=== PATIENT | male | born 1940 | race Caucasian/White ===

== ENCOUNTER 2018-04-16 17:40 | Observation (INO) | payer OTHER, SELFPAY ==
[2018-04-16] VITALS (8 sets, daily range): BP systolic 135–195; BP diastolic 88–114; PULSE 81–105; RESP 14–21; TEMP 36.8–36.9; O2SAT 95–98; BMI 29.7; BMI 29.2
[2018-04-16 17:56] LABS: Bedside Glucose 169 mg/dL (70-110)
[2018-04-16 18:51] LABS: Absolute Lymphocyte Count 1.21 X10^3/ul (0.83-4.51); Absolute Neutrophil Count 4.2 X10^3/uL (2.0-7.7); Basophil# 0.03 X10^3/uL; Basophil% 0.5 % (0-1); Eosinophil# 0.12 X10^3/uL; Eosinophils% 1.9 % (0-5); Hematocrit 39.8 % (40-54); Hemoglobin 12.5 g/dl (13.0-16.5); Lymphocyte # 1.21 X10^3/ul (4.0); Lymphocyte % 19.4 % (19-41); Mean Corp Hgb Conc 31.4 g/gl (32-36); Mean Corpuscular Volume 95.4 fL (80-94); Mean Platelet Vol. 9.7 fl (6.2-12.0); Monocyte# 0.68 X10^3/uL; Monocyte% 10.9 % (0-10); Neutrophil # 4.21 X10^3/uL (2.7-7.7); Neutrophil % 67.3 % (47-70); Platelet Count 277 K/mm3 (150-450); RBC Distribution Width CV 13.5 % (11.6-14.6); RBC Distribution Width SD 46.8 fl (35.1-43.9); Red Blood Count 4.17 M/mm3 (4.6-6.2); White Blood Count 6.3 K/mm3 (4.4-11.0)
[2018-04-16 18:54] LABS: POSITIVE COUNT NO; POSITIVE DIFFERENTIAL NO; POSITIVE MORPHOLOGY NO
[2018-04-16] MEDS: 0.9% Normal Saline 1,000 ML 150 ML IV (18:56)
[2018-04-16 19:26] LABS: Anion Gap 6 (5-15); BUN 18 mg/dL (7-18); BUN/Creat Ratio 15.5 RATIO (10-20); Calcium,Total 9.3 mg/dL (8.5-10.1); Chloride 102 mmol/L (98-107); Creatinine, Serum 1.16 mg/dL (0.70-1.30); EST Glomerular Filtration Rate 65 mL/min (>60); Est Glom Filt Rate - Afr Amer 78 mL/min (>60); Estimated Creatinine Clearance 52.48 ml/min; Glucose 177 mg/dL (74-106); Potassium 4.2 mmol/L (3.5-5.1); Sodium Level 139 mmol/L (136-145)
--- NOTE | 2018-04-16 20:09 | PCM.HP.STD ---
Problem List (1) Patent foramen ovale Status: Chronic (2) Paroxysmal atrial fibrillation Status: Chronic (3) Type 2 diabetes mellitus without complications Status: Chronic (4) History of CVA with residual deficit Status: Chronic History of Present Illness Date of Admission: 04/16/18 Chief Complaint: Double vision ?5 days. The patient is a 77 year old M with a significant history of patent foramen ovale, paroxysmal atrial fibrillation on Coumadin anticoagulation, type 2 diabetes, hyperlipidemia, hypertension, prior CVA with some residual left-sided weakness who presented with a 5 day history of persistent double vision. He denies any focal weakness, speech changes, numbness or tingling.. 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 (Chronic) Patent foramen ovale (Chronic) Nonsustained ventricular tachycardia (Chronic) Paroxysmal atrial fibrillation (Chronic) Type 2 diabetes mellitus without complications (Chronic) Hyperlipidemia (Chronic) Hypertension (Chronic) History of CVA with residual deficit (Chronic) Medical History: Medical History (Last Reviewed 10/20/17 @ 13:18 by Fabiola Murphy) Patent foramen ovale (Chronic) Q21.1 Nonsustained ventricular tachycardia (Chronic) I47.2 Paroxysmal atrial fibrillation (Chronic) I48.0 Type 2 diabetes mellitus without complications (Chronic) E11.9 Hyperlipidemia (Chronic) E78.5 Hypertension (Chronic) I10 History of CVA with residual deficit (Chronic) I69.30 Atherosclerosis of coronary artery of [place] heart without angina pectoris I25.10 Allergies No Known Allergies Allergy (Verified 10/20/17 13:18) Home Medications: Ambulatory Orders Medication Instructions Recorded Insulin Glargine,Hum.rec.anlog 12 unit SQ DAILY 01/22/16 [Lantus] Lisinopril [Zestril] 5 mg PO DAILY 01/22/16 Metoprolol Tartrate [Lopressor 50 mg PO BID 01/22/16 (Beta Federico)] Pioglitazone [Actos] 45 mg PO DAILY 01/22/16 Sitagliptin Phosphate [Januvia] 100 mg PO DAILY 01/22/16 Warfarin [Coumadin ([facility])] 5 mg PO DAILY 01/22/16 glipiZIDE [Glucotrol] 5 mg PO BID 01/22/16 Simvastatin 40 mg PO QHS 08/16/18 Warfarin [Coumadin ([facility])] 7.5 mg PO DAILY 04/16/18 Surgical History: Surgical History (Last Reviewed 10/20/17 @ 13:18 by Fabiola Murphy) History of left heart catheterization Onset Date: ~10/08/07 Z98.890 non obs CAD Surgical History: no surgical history Lives: Alone Smoking Status: Never smoker Tobacco Use: Non-smoker Alcohol: None, Rare - *Family History Maternal Family History: Family History (Last Reviewed 10/20/17 @ 13:18 by Fabiola Murphy) Father CAD (coronary artery disease) History Items: No pertinent history Paternal Family History: Family History (Last Reviewed 10/20/17 @ 13:18 by Fabiola Murphy) Father CAD (coronary artery disease) History Items: No pertinent history Review of Systems Constitutional: Denies: Chills, Fever, Weight Change HEENT: Denies: Head Aches, Sinus Congestion, Sinus Drainage Cardiovascular: Denies: Chest Pain, Palpitations Respiratory: Denies: Cough, Shortness of breath at rest, Sputum production Gastrointestinal: Denies: Abdominal Pain, Nausea, Vomiting Genitourinary: Denies: Dysuria Musculoskeletal: Denies: Joint Pain, Joint Tenderness Skin: Denies: Rash, Wounds Neurological: Denies: Numbness, Tingling, Focal weakness Psychiatric: Reports: Anxiety Hematologic/ Lymphatic: Reports: Adenopathy VTE Information - Inpt Only VTE Present on Admission: No VTE Mechan Device Prophylaxis: SCD's VTE Pharm Prophylaxis ordered?: No Reason prophylaxis not ordered:: Treatment Not Indicated - On Coumadin for A. fib. Patient took his Coumadin on the day of admission. - Physical Exam General: Alert, Oriented x3, Cooperative HEENT: Atraumatic, PERRLA, EOMI, Normocephalic Neck: Supple, No JVD, Negative Carotid Bruits Lungs: Clear to auscultation, Normal air movement Cardiovascular: Regular rate, No murmurs Abdomen: Bowel Sounds Present, Soft, Non Tender Extremities: No edema, Capillary Refill Less than 3 Seconds Skin: No rashes, No breakdown Musculoskeletal: No Tenderness to Palpation of Joints or Extremities Neurological: Motor Exam 5/5 strength throughout, - - A confrontation test unremarkable. With one eye closed the patient sees clearly. However with both eyes open the patient see objects doubled. No hyperreflexia looks. Negative pronator drift. No dysmetria. Vital Signs Temp Pulse Resp BP Pulse Ox 98.2 F 84 21 H 148/114 H 95 04/16/18 17:41 04/16/18 19:40 04/16/18 19:40 04/16/18 19:40 04/16/18 19:40 Oxygen Delivery Method Room Air Weight: 91.5 kg Body Mass Index (BMI) 29.7 Finger Stick Blood Glucose 169 Laboratory Tests Past 24 Hrs 04/16/18 04/16/18 18:30 18:30 WBC 6.3 RBC 4.17 L Hgb 12.5 L Hct 39.8 L MCV 95.4 H MCH 30.0 MCHC 31.4 L RDW 13.5 RDW Differential 46.8 H Plt Count 277 MPV 9.7 Immature Gran % (Auto) 0.000 Neut % (Auto) 67.3 Lymph % (Auto) 19.4 [place] % (Auto) 10.9 H Eos % (Auto) 1.9 Baso % (Auto) 0.5 Absolute Neuts (auto) 4.2 Absolute Lymphs (auto) 1.21 Total Counted Not Reportable Sodium 139 Potassium 4.2 Chloride 102 Carbon Dioxide 31.0 Anion Gap 6 BUN 18 Creatinine 1.16 Estim Creat Clear Calc 52.48 Est GFR (MDRD) Af Amer 78 Est GFR (MDRD) Non-Af 65 BUN/Creatinine Ratio 15.5 Glucose 177 H Calcium 9.3 Troponin I < 0.015 POC Glucose 04/16/18 17:48 POC Glucose 169 H Assessment/Plan The patient is a 77 year old M with a significant history of patent foramen ovale, paroxysmal atrial fibrillation on Coumadin anticoagulation, type 2 diabetes, hyperlipidemia, hypertension, prior CVA with some residual left-sided weakness presents with a double vision consistent with strokelike symptoms. Strokelike symptoms The patient has multiple risk factors for stroke:paroxysmal A. fib although on Coumadin; patent foramen ovale; diabetes; hypertension and hyperlipidemia. Brain CT showed no hemorrhage; it showed chronic involutional changes. MRI/MRA of brain and neck ordered per stroke protocol Echocardiogram ordered. Aspirin and Lipitor continued. Since his symptoms started 5 days ago there is no need for permissive hypertension at this time. Lisinopril and metoprolol continued PT/ST/OT to work with patient. Fasting lipids in a.m. Neurology consult. Diabetes Glucotrol, linagliptin, Actos and Lantus continued Accu-Chek q. before meals at bedtime Hypertension Lisinopril and metoprolol continued as above. Chronic A. fib PT/INR ordered. Will hold Coumadin at this time to prevent hemorrhagic conversion if indeed an MRI shows any stroke. DVT Prophylaxis SCD Patient reports taking Coumadin on day of admission. Code Visit OBSV E&M: 41922 Initial observation care L3
--- NOTE | 2018-04-16 20:10 | ED.VISSUMM ---
- ER Visit Summary Date of Service: 04/16/18 Chief Complaint: [Double vision] History of Present Illness: The patient is a 77 M [presents the emergency department with complaint of double vision that started 5 days ago. Patient states that when he looks with his right eye he only sees one object and when he lives with his left eye he only sees one object but when both eyes are open together he sees 2 objects side by side. Patient denies any headache. Patient denies any falls or head injuries. Patient denies any focal weakness otherwise. He denies any difficulty with speech. Patient does have history of prior stroke years ago without significant deficits left from that. Patient states that he had a heart rhythm and needed cardioversion at some point but he cannot remember the name of it. Patient is not anticoagulated.] Physical Examination: [HEENT-PERRLA, EOMI. Cranial nerves II through XII grossly intact. TMs clear. Mucous membranes moist. No adenopathy. Cardiovascular-regular rate and rhythm without murmur or ectopy Lungs-clear to auscultation, chest wall stable without crepitus or subcu emphysema Abdomen-normoactive bowel sounds, soft, nontender, no rebound or rigidity, no peritoneal signs. Neuro xdgg-clilks-qcbg and heel to olguin testing within normal limits, negative Romberg, negative pronator drift, fundi benign. Extremities-intact ?4, normal range of motion, normal pulses, atraumatic] Test Results: [CT scan of the brain showed chronic involutional changes. EKG obtained arrival shows atrial fibrillation with a ventricular response of 96 bpm. Troponin was less than 0.015. CBC with differential was normal. Chemistries unremarkable.] Emergency Department Course and Treatment: Patient case discussed with hospitalist will evaluate patient for admission] Treatment Plan: [Admit for further workup and evaluation of double vision as we need to rule out stroke as the etiology.] Disposition: [Admit] Impression: [Double vision-rule out stroke Atrial fibrillation] This note was generated with [employer] dictation software. It may contain incorrect words, spelling, and punctuation that were not noted in review of the chart prior to signing ED Disposition - Plan for ED Patient: Chief Complaint: Vision Prob Referrals: Mohit Palacio DO [Primary Care Provider] -
--- NOTE | 2018-04-16 20:24 | NURSING ---
Called serge in er at this time, pt ok for floor.
[2018-04-16] MEDS: Metoprolol Tartrate 50 MG Tablet PO (23:06)
[2018-04-17] VITALS (9 sets, daily range): BP systolic 137–155; BP diastolic 65–90; PULSE 79–99; RESP 14–16; TEMP 36.6–37.1; O2SAT 96–98
[2018-04-17 06:12] LABS: International Normalized Ratio 1.5
[2018-04-17 06:28] LABS: Anion Gap 5 (5-15); BUN 13 mg/dL (7-18); BUN/Creat Ratio 15.2 RATIO (10-20); Calcium,Total 8.8 mg/dL (8.5-10.1); Chloride 106 mmol/L (98-107); Cholesterol 111 mg/dL (200); Creatinine, Serum 0.86 mg/dL (0.70-1.30); EST Glomerular Filtration Rate 92 mL/min (>60); Est Glom Filt Rate - Afr Amer 111 mL/min (>60); Estimated Creatinine Clearance 70.79 ml/min; Glucose 144 mg/dL (74-106); High Density Lipoprotein 60 mg/dL; Sodium Level 140 mmol/L (136-145); Triglycerides 49 mg/dL; Very Low Density Lipoprotein 10 mg/dL (5-40)
[2018-04-17 07:16] LABS: Bedside Glucose 149 mg/dL (70-110)
[2018-04-17] MEDS: glipiZIDE 5 MG Tablet PO (09:05)
[2018-04-17] MEDS: Aspirin 81 MG TAB.CHEW PO (09:05)
[2018-04-17] MEDS: Pioglitazone Hydrochloride 45 MG Tablet PO (09:05)
[2018-04-17] MEDS: LINAGLIPTIN 5 MG TABLET PO (09:06)
[2018-04-17] MEDS: Metoprolol Tartrate 50 MG Tablet PO (09:06)
[2018-04-17] MEDS: Lisinopril 5 MG Tablet PO (09:06)
--- NOTE | 2018-04-17 11:22 | CON.PCM_ITS ---
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 Per patient this started about 5 days ago, has diplopia in both eyes, feels images are side to side. Denies any ALDRIDGE, vision loss, speech disturbances, focal motor weakness or sensory loss. Per patient he lives alone, does not use cane or walker to ambulate, denies any falls and does not drive. 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 INR on admission was 1.5 [] Past Medical History Past Medical History (Chronic Problems): Chronic Problems (Last Reviewed 10/20/17 @ 13:18 by Fabiola Murphy) [employer] (current) use of anticoagulants (Chronic) Patent foramen ovale (Chronic) Nonsustained ventricular tachycardia (Chronic) Paroxysmal atrial fibrillation (Chronic) Type 2 diabetes mellitus without complications (Chronic) Hyperlipidemia (Chronic) Hypertension (Chronic) History of CVA with residual deficit (Chronic) Medical History: Medical History (Last Reviewed 10/20/17 @ 13:18 by Fabiola Murphy) Patent foramen ovale (Chronic) Q21.1 Nonsustained ventricular tachycardia (Chronic) I47.2 Paroxysmal atrial fibrillation (Chronic) I48.0 Type 2 diabetes mellitus without complications (Chronic) E11.9 Hyperlipidemia (Chronic) E78.5 Hypertension (Chronic) I10 History of CVA with residual deficit (Chronic) I69.30 Atherosclerosis of coronary artery of [place] heart without angina pectoris I25.10 Allergies No Known Allergies Allergy (Verified 10/20/17 13:18) Home Medications: Ambulatory Orders Medication Instructions Recorded Insulin Glargine,Hum.rec.anlog 12 unit SQ DAILY 01/22/16 [Lantus] Lisinopril [Zestril] 5 mg PO DAILY 01/22/16 Metoprolol Tartrate [Lopressor 50 mg PO BID 01/22/16 (Beta Federico)] Pioglitazone [Actos] 45 mg PO DAILY 01/22/16 Sitagliptin Phosphate [Januvia] 100 mg PO DAILY 01/22/16 Warfarin [Coumadin ([facility])] 5 mg PO DAILY 01/22/16 glipiZIDE [Glucotrol] 5 mg PO BID 01/22/16 Simvastatin 40 mg PO QHS 04/16/18 Warfarin [Coumadin ([facility])] 7.5 mg PO DAILY 04/16/18 Surgical History: Surgical History (Last Reviewed 10/20/17 @ 13:18 by Fabiola Murphy) History of left heart catheterization Onset Date: ~10/08/07 Z98.890 non obs CAD Surgical History: no surgical history Lives: Alone Smoking Status: Never smoker Tobacco Use: Non-smoker Alcohol: None, Rare - *Family History Maternal Family History: Family History (Last Reviewed 10/20/17 @ 13:18 by Fabiola Murphy) Father CAD (coronary artery disease) History Items: No pertinent history Paternal Family History: Family History (Last Reviewed 10/20/17 @ 13:18 by Fabiola Murphy) Father CAD (coronary artery disease) History Items: No pertinent history Review of Systems Constitutional: Reports: - - complete ROS negative except as documented in HPI Patient Problems: Active and Suspected Problems (Last Reviewed 10/20/17 @ 13:18 by Fabiola Murphy) Diplopia (Acute) - Physical Exam General: Alert HEENT: Normocephalic Neck: Supple Lungs: Normal air movement Cardiovascular: Normal S1, Normal S2 Abdomen: Bowel Sounds Present Extremities: No cyanosis Skin: No rashes Musculoskeletal: No Tenderness to Palpation of Joints or Extremities Neurological: - - consious, alert, AoAx3, CN 2-12 grossly intact, except for diplopia, old residual left facial droop, power 5/5 right UE/LE, -5/5 left UE/LE , no sensory loss, no cerebellar signs, Reflexes + B/L B/S/T/K/A, gait deferred. Psych/Mental Status: Normal Affect Vital Signs Temp Pulse Resp BP Pulse Ox 97.8 F 79 16 155/90 H 96 04/17/18 09:04 04/17/18 10:59 04/17/18 09:04 04/17/18 09:04 04/17/18 09:04 Oxygen Delivery Method Room Air Weight: 89.8 kg Body Mass Index (BMI) 29.2 Intake and Output for Last 24 Hours 04/15/18 04/16/18 04/17/18 23:59 23:59 23:59 Intake Total 240 / 240 Output Total 950 / 950 Balance -710 / -710 Laboratory Tests Past 24 Hrs 04/16/18 04/17/18 04/17/18 21:36 05:45 05:45 PT 18.0 H INR 1.5 Sodium 140 Potassium 4.0 Chloride 106 Carbon Dioxide 29.0 Anion Gap 5 BUN 13 Creatinine 0.86 Estim Creat Clear Calc 70.79 Est GFR (MDRD) Af Amer 111 Est GFR (MDRD) Non-Af 92 BUN/Creatinine Ratio 15.2 Glucose 144 H Calcium 8.8 Troponin I < 0.015 Triglycerides 49 Cholesterol 111 LDL Cholesterol 41 VLDL Cholesterol 10 HDL Cholesterol 60 POC Glucose 04/17/18 07:08 POC Glucose 149 H Assessment/Plan All Active Problems (Last Reviewed 10/20/17 @ 13:18 by Faboila Murphy) Diplopia (Acute) The patient is a 77 year old CM with PMH HTN, HLD, DM, 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 Per patient this started about 5 days ago, has diplopia in both eyes, feels images are side to side. Denies any fatigue, ptosis, ALDRIDGE, vision loss, speech disturbances, focal motor weakness or sensory loss. Per patient he lives alone, does not use cane or walker to ambulate, denies any falls and does not drive. 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 INR on admission was 1.5 Impression Diplopia-? due to diabetes. Plan -MRI brain and CTA head/neck reviewed- no new stroke, old changes -On Coumadin, keep INR 2-3 -On Lipitor, decrease to 40 mg PO q hs -Check ACH binding/blocking/modulating Ab and anti-MUSK ab. Check Hba1c. -Recommend ophthalmology consult as outpatient. -Fall precautions -Further medical management per primary team. -GI/DVT prophylaxis -Please call with questions if any -Thank you for allowing us to participate in patient's care and management I spent 60 minutes taking history, doing physical examination, reviewing medical records,coordinating care and counseling the patient. Code Visit Inpatient E&M: 48120 Init Hosp L3
[2018-04-17 11:41] LABS: Bedside Glucose 308 mg/dL (70-110)
--- NOTE | 2018-04-17 11:58 | PCM.DC ---
- Discharge Diagnoses Current Active Problems: Current Active and Chronic Problems (Last Reviewed 10/20/17 @ 13:18 by Fabiola Murphy) Diplopia (Acute) You will use the following diet at home:: Calorie/Carbohydrate Controlled (specify 1200, 1400, etc), Cardiac Discharge Activity: May Not Drive - Until approved by ophthalmology. Call your doctor if you observe: Numbness or Tingling, Shortness of breath, Dizziness, Fainting spells, Chest pain Additional Instructions: You will take coumadin 7.5 mg daily until further notified to resume previous regimen. Repeat INR on friday which will be followed with by Dr. Smith. Allergies/Adverse Reactions: Allergies No Known Allergies Allergy (Verified 10/20/17 13:18) Medications to take at Discharge Insulin Glargine,Hum.rec.anlog [Lantus] 12 unit SQ DAILY 01/22/16 Lisinopril [Zestril] 5 mg PO DAILY 01/22/16 Metoprolol Tartrate [Lopressor (beta anand)] 50 mg PO BID 01/22/16 Pioglitazone [Actos] 45 mg PO DAILY 01/22/16 Sitagliptin Phosphate [Januvia] 100 mg PO DAILY 01/22/16 Warfarin [Coumadin] 5 mg PO DAILY 01/22/16 glipiZIDE [Glucotrol] 5 mg PO BID 01/22/16 Simvastatin 40 mg PO QHS 04/16/18 Warfarin [Coumadin] 7.5 mg PO DAILY 04/16/18 Orders to be completed after discharge: Prothrombin Time w/INR Time Frame: 3 Days, Location: Laboratory Primary Care Physician: Mohit Palacio DO [Primary Care Provider] - Please follow up with your Primary Care Physician in: 3-5 Days Test Results: Test results from this visit will be discussed in further detail at your follow-up appointment, if applicable. Please Follow Up With: Quinton Smith MD When: 1 Week Please Follow Up With: [facility] When: Call for an appointment next week Proposed Discharge Date: 04/17/18
--- NOTE | 2018-04-17 12:09 | PCM.DC.SUM ---
<Tala Lomeli - Last Filed: 04/17/18 13:58> Discharge Date and Diagnosis - Problem List Patient Problems: Active and Suspected Problems (Last Reviewed 10/20/17 @ 13:18 by Fabiola Murphy) Diplopia (Acute) Date of Admission: 04/16/18 Date of Discharge: 04/17/18 - Primary Discharge Diagnosis Active and Suspected Problems (Last Reviewed 10/20/17 @ 13:18 by Fabiola Murphy) 1. Diplopia-suspected secondary to diabetes. Acute CVA ruled out. - Secondary Discharge Diagnosis Chronic Problems (Last Reviewed 10/20/17 @ 13:18 by Fabiola Murphy) [facility] (current) use of anticoagulants (Chronic) Patent foramen ovale (Chronic) Nonsustained ventricular tachycardia (Chronic) Paroxysmal atrial fibrillation (Chronic) Type 2 diabetes mellitus without complications (Chronic) Hyperlipidemia (Chronic) Hypertension (Chronic) History of CVA with residual deficit (Chronic) Hospital Course and Treatment Imaging Results: Diagnostic Data Brain CT 04/16/18 18:05 IMPRESSION: Chronic involutional changes of the brain. Electronically Signed: Diaz Sadler DO at 19:30 EDT Tel , Service support , Brain MRI 04/16/18 21:10 IMPRESSION: 1. Involutional changes of the brain, as described above. 2. No MR evidence for acute infarct. Electronically Signed: Gayathri Betts MD at 8:58 EDT , Service support , Head MRA 04/16/18 21:10 IMPRESSION: Apparent hemodynamically significant stenosis of the distal right M1 segment with apparent decreased perfusion of the right M2 segments. Electronically Signed: Gayathri Betts MD at 9:15 EDT , Service support , Neck MRA 04/16/18 21:10 IMPRESSION: Technically limited MRA due to patient motion without definite evidence for hemodynamically significant stenosis or thrombosis. Electronically Signed: Gayathri Betts MD at 9:04 EDT , Service support , Dr. Maldonado- Neurology Operations: None Procedures: 2-D Echocardiogram Summary of Care Provided: The patient is a 77 year old M admitted 04/16/2018 due to double vision for 5 days. He has a past medical history of paroxysmal atrial fibrillation on Coumadin, type 2 diabetes mellitus, hypertension, hyperlipidemia, history of CVA with residual left-sided weakness, patent foramen ovale. Neurology consulted. Acute CVA ruled out. MRI of brain showed no acute infarct. 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 INR subtherapeutic at 1.5. Patient follows with Dr. Smith for paroxysmal atrial fibrillation. He will take increased dose of Coumadin 7.5 mg daily until further advised to resume previous regimen. Repeat INR in 3 days. Recommend follow-up with primary care physician in 3-5 days, ophthalmology as soon as possible, and Dr. Smith in 1 week. INR to be managed by cardiology. Patient was instructed not to drive until further approved by ophthalmology. Echocardiogram pending and will reviewed prior to discharge. Hemoglobin A1c 9.3%. Recommend further medication adjustments and monitoring per primary care physician with goal of less than 7%. General: Alert, Oriented x3, Cooperative HEENT: Atraumatic, PERRLA, EOMI, Normocephalic Neck: Supple, No JVD, Negative Carotid Bruits Lungs: Clear to auscultation, Normal air movement Cardiovascular: Regular rate, No murmurs Abdomen: Bowel Sounds Present, Soft, Non Tender Extremities: No edema, Capillary Refill Less than 3 Seconds Skin: No rashes, No breakdown Musculoskeletal: No Tenderness to Palpation of Joints or Extremities Neurological: Motor Exam 5/5 strength throughout, neuro grossly intact, continues to complain of diplopia. Patient seen exam prior to discharge. Physical assessment as noted above. Patient stable for discharge home with the follow-up her conditions as noted above. This patient was seen by ALFREDA Sagastume under the supervision of Dr. Garces. Discharge Diet: Low fat/ Low Cholesterol, Carb Control Diet Discharge Activity: May Not Drive - Until approved by ophthalmology. Call your doctor if you observe: Numbness or Tingling, Shortness of breath, Dizziness, Fainting spells, Chest pain Home Medications: Medications to take at Discharge Insulin Glargine,Hum.rec.anlog [Lantus] 12 unit SQ DAILY 01/22/16 Lisinopril [Zestril] 5 mg PO DAILY 01/22/16 Metoprolol Tartrate [Lopressor (beta anand)] 50 mg PO BID 01/22/16 Pioglitazone [Actos] 45 mg PO DAILY 01/22/16 Sitagliptin Phosphate [Januvia] 100 mg PO DAILY 01/22/16 Warfarin [Coumadin] 5 mg PO DAILY 01/22/16 glipiZIDE [Glucotrol] 5 mg PO BID 01/22/16 Simvastatin 40 mg PO QHS 04/16/18 Warfarin [Coumadin] 7.5 mg PO DAILY 04/16/18 Primary Care Physician: Mohit Palacio DO [Primary Care Provider] - Please follow up with your Primary Care Physician in: 3-5 Days Please Follow Up With: Quinton Smith MD When: 1 Week Please Follow Up With: [facility] When: Call for an appointment next week Disposition: Home Minutes spent on discharge:: 35 Patient Condition:: Stable Medical Necessity - Tobacco Use Smoking Status: Never smoker Tobacco Use: Non-smoker Meaningful Use Info Meaningful Use Diagnoses (Choose all that apply): None applicable <Leo Garces - Last Filed: 04/17/18 15:20> Discharge Date and Diagnosis - Primary Discharge Diagnosis Active and Suspected Problems (Last Reviewed 10/20/17 @ 13:18 by Fabiola Murphy) Diplopia (Acute) - Secondary Discharge Diagnosis Chronic Problems (Last Reviewed 10/20/17 @ 13:18 by Fabiola Murphy) 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 Patient was placed on the monitored bed there was an initial suspicion of acute CVA however MRI obtained came back negative. Patient was therefore discharged home to follow-up with his primary care physician as well as to follow-up with ophthalmology. Patient INR was subtherapeutic on admission his Coumadin dose was adjusted prior to discharge Hospital course as elicited abide by discomfort including next Total time spent on discharge process 35 minutes Code Visit OBSV E&M: 81259 Observation care discharge
[2018-04-17 12:39] LABS: Hemoglobin A1c 9.3 % (4.2-6.3)
[2018-04-29 08:22] LABS: ACHR AB Modulating <12 % (0-20); ACHR Recep AB, Blocking 22 % (0-25)
== END 2018-04-17 15:45 | disposition home or self-care (01) ==
LOC: ED 18:28 → PCU 20:37
PROVIDERS: Psychiatry & Neurology Neurology; Admitting Provider Hospitalist; Emergency Provider Emergency Medicine; Family Provider Family Medicine; PCP Family Medicine; Visit Provider Internal Medicine
DX: H53.2 Diplopia (principal); Q21.1 Atrial septal defect; I48.0 Paroxysmal atrial fibrillation; E11.9 Type 2 diabetes mellitus without complications; E78.5 Hyperlipidemia, unspecified; I10 Essential (primary) hypertension; I69.354 Hemiplegia and hemiparesis following cerebral infarction affecting left non-dominant side; I47.2 Ventricular tachycardia; Z79.01 Long term (current) use of anticoagulants; Z79.4 Long term (current) use of insulin; Z79.899 Other long term (current) drug therapy; R94.31 Abnormal electrocardiogram [ECG] [EKG]
CPT/HCPCS: 36415; 70450; 70544; 70547; 70551; 80048; 80061; 82962; 83036; 83519; 84484; 85025; 85610; 93005; 93306; 96360; 96361; 97161; 97165; 97802; 99218; 99285; J7030; A4216; G0378

== ENCOUNTER → 2018-12-11 09:41 | Outpatient (CLI) | payer SELFPAY ==
[2018-11-09 10:20] VITALS: BMI 26.9
== END ==
PROVIDERS: Family Provider Family Medicine; PCP Family Medicine; Referring Provider Internal Medicine Cardiovascular Disease; Visit Provider Internal Medicine Cardiovascular Disease
DX: I47.2 Ventricular tachycardia (principal); I48.0 Paroxysmal atrial fibrillation; I10 Essential (primary) hypertension; E78.5 Hyperlipidemia, unspecified
CPT/HCPCS: 93017; 93350

== ENCOUNTER → 2018-12-29 11:00 | Outpatient (CLI) | payer SELFPAY ==
[2018-11-09 10:20] VITALS: BMI 26.9
--- NOTE | 2018-12-29 11:00 | RAD_ITS ---
STUDY: X-RAY CHEST REASON FOR EXAM: Male, 78 years old. 3 week history of shortness of breath. TECHNIQUE: PA and lateral views of the chest. COMPARISON: None. FINDINGS: Moderate size right pleural effusion with underlying infiltration and/or atelectasis. Small left pleural effusion with left basilar atelectasis. Normal size heart. Normal mediastinum and javier. Normal visualized pulmonary arteries. There is atherosclerotic calcification of the aortic arch with tortuosity. There are diffuse degenerative changes of the visualized thoracic spine. There is degenerative osteoarthritis of the bilateral shoulders. There is no demonstrated abnormality of the visualized soft tissue structures of the upper abdomen. RAD/Chest PA and Lateral IMPRESSION: Bilateral pleural effusions with underlying infiltration and/or atelectasis worse on the right side. Electronically Signed: Garcia Joy, at 11:30 EDT , Service support ,
--- NOTE | 2018-12-30 08:02 | HP_ITS ---
HPI HPI Surgical H&P: Yes Details: This is a 78-year-old male who presents today to the office for a cardiovascular outpatient follow-up. He is a diabetic, with no significant coronary disease by catheterization in October 2007, who is returning for followup of his history of atrial fibrillation and cerebrovascular accident approximately in 2002. Patient reports that he has slight left facial droop, slight weakness in his left upper extremity, and is unable to voluntarily close his left eye, but other than that has fully recovered. He reports that he has increased his walking, and is doing fairly well since his last visit. On 04/17/18 he had some diplopia thought maybe he had another stroke. He reported to [facility] ER where was found that he had low blood sugar and his Actos was adjusted. MRI apparently was negative for acute CVA. At that time, his Coumadin was held but then restarted. He is now here in follow-up. He is unaware of when he is in and out of atrial fibrillation. He was recently started on amiodarone therapy after his stress echocardiogram on 12/11/2018. His stress echocardiogram was negative for ischemia. He will undergo a cardioversion. He states ongoing SOB for three weeks. This is not worsening. It is most noted during activity. This improves with rest. He denies orthopnea or PND. He denies chest, arm, jaw, or neck pain. He denies palpitations, pre-syncope, or syncope. He states lightheadedness and dizziness with quick position changes such as bending forward and returning to upright position. Intake Vital Signs 12/29/18 Weight: 184 lb 12/29/18 Blood Pressure 118/68 12/29/18 Blood Pressure Location Lt brachial 12/29/18 Blood Pressure Position Sitting 12/29/18 Respiratory Rate 16 12/29/18 Pulse Rate 62 12/29/18 Pulse Source Palpation Intake Visit Reasons: PER DENIS Accompanied by: Son Is patient in pain?: No Allergies No Known Allergies Allergy (Verified 12/29/18 09:57) Medications Lisinopril [Zestril] 5 mg PO DAILY 01/22/16 [History Confirmed 12/29/18] Metoprolol Tartrate [Lopressor (beta anand)] 50 mg PO BID 01/22/16 [History Confirmed 12/29/18] Sitagliptin Phosphate [Januvia] 100 mg PO DAILY 01/22/16 [History Confirmed 12/29/18] glipiZIDE [Glucotrol] 5 mg PO BID 01/22/16 [History Confirmed 12/29/18] warfarin 5 mg tablet 5 mg PO .COMPLEX 04/28/18 [History Confirmed 12/29/18] pioglitazone 45 mg tablet 45 mg PO .COMPLEX 05/11/18 [History Confirmed 12/29/18] simvastatin 40 mg tablet 40 mg PO QHS #90 tab 10/26/18 [Rx Confirmed 12/29/18] insulin glargine (U- 100) 100 unit/mL subcutaneous solution 12 unit SC DAILY PRN 11/09/18 [History Confirmed 12/29/18] amiodarone 200 mg tablet 200 mg PO DAILY #30 tab 12/11/18 [Rx Confirmed 12/29/18] hydrochlorothiazide 12.5 mg tablet 12.5 mg PO DAILY 12/29/18 [History Confirmed 12/29/18] Ejection fraction %: 55 to 59 PFSH Medical History Persistent atrial fibrillation (Chronic) Patent foramen ovale (Chronic) Nonsustained ventricular tachycardia (Chronic) Type 2 diabetes mellitus without complications (Chronic) Hyperlipidemia (Chronic) Hypertension (Chronic) History of CVA with residual deficit (Chronic) Atherosclerosis of coronary artery of augustine heart without angina pectoris (Acute) Surgical History History of left heart catheterization (Chronic 10/08/07) History of removal of cyst (Chronic) Family History Father , Age 66 CAD (coronary artery disease) Myocardial infarction Sudden cardiac Mother , Age 83, CHF Congestive heart failure Social History Smoking Status: Never smoker ROS Const Const: Negative for fatigue, weakness, body ache, fever(s) or chills ENT ENT: Negative for dizziness Cardio Chest Pain: No Palpitations: No Edema: None Muscle aches with walking: None Resp Respiratory: Positive for SOB with activity; negative for SOB at rest, SOB orthopnea\SOB lying down or paroxysmal nocturnal dyspnea GI GI: Negative nausea, vomiting blood/hematemesis, bright, red blood in stools or black,tarry stools : Negative for hematuria or frequent nighttime urination/ nocturia Musc Musc: Negative for muscle aches/ myalgia Skin Skin: Negative non-healing lesions or rash Neuro Neuro: Negative for dizziness, lightheadedness, near syncope, syncope, orthostatic symptoms or weakness Endo Endo: Negative for fatigue Allergy Allergy/Immunology: Negative for rash Cardiology Exam Const Appearance: cooperative, healthy appearing, comfortable and no acute distress Nutritional Appearance: well nourished and overweight Orientation: alert, awake and oriented x3 Head Head: normal to inspection Ears: hearing grossly normal bilaterally Nose: external nose normal Face and Sinus: face symmetric Mouth: oral mucosae normal Eyes General: appearance normal, both eyes and all related structures Eyelids: eyelids normal EOM: EOM intact bilaterally Neck Neck: normal visual inspection and no JVD Carotids: normal carotid upstroke Chest Chest inspection: normal inspection of the chest, symmetric chest movement and normal respiratory effort; negative cough Auscultation: Bilateral: Clear to Auscultation Cardio Rate: regular rate Rhythm: irregularly irregular Heart sounds: S1 normal and S2 normal; negative rub, gallop or murmur GI GI: normal to inspection Neuro General: alert, awake, oriented x3 and CN's II-XI intact bilaterally Skin Skin: no rashes or lesions noted Extremities Pulses: Normal: Right Posterior Tibial Pulse, Left Posterior Tibial Pulse, Right Radial Pulse, Left Radial Pulse Lower Extremity Edema: None: Bilateral Psych Psychological: normal affect Assessment & Plan 1. Persistent atrial fibrillation I48.1 Paty - ALFREDA Ellis His EKG in office continues to showed atrial fibrillation. His rate is well controlled. He will continue with beta-anand and Coumadin therapy. His INR has been monitored by primary care physician and has been consistently greater than 2. He will continue to have his INR checked on a weekly basis prior to cardioversion. He will also undergo a thyroid evaluation to ensure stability. His most recent echocardiogram in April 2018 showed a preserved ejection fraction of 55% and mildly enlarged left atrium. His most recent stress echocardiogram from November 2018 was negative for ischemia and showed a preserved ejection fraction of 65%. He will proceed with cardioversion. Based on results further recommendation will be made. Orders Orders: 12 Lead EKG performed by [facility] 12/29/18 T4 Free Direct 12/29/18 Thyroid Stim Hormone (TSH) 12/29/18 2. Dyspnea on exertion R06.09 Plan ALFREDA Godwin Patient continues to have shortness of breath on exertion. It is unclear if this is related to his underlying atrial fibrillation or possibly related to his stage III diastolic dysfunction. Depending on results on his cardioversion, perhaps adjusting diuretic will be beneficial. This will be reassessed over time based on symptoms and rhythm. 3. Hyperlipidemia, unspecified hyperlipidemia type E78.5 Plan - ALFREDA Ellis This is being monitored by primary care physician. His last lipid panel in April 2018 showed cholesterol: 111, HDL: 60, LDL: 41, and triglycerides: 49. He will continue with current statin medication. 4. Essential hypertension I10 Plan - ALFREDA Ellis Patient's blood pressure is well-controlled. We will continue to monitor. We will not make any medication regimen changes. Plan Detail Other Medications New: hydrochlorothiazide 12.5 mg PO DAILY Additional Comments - ALFREDA Ellis Discussed the above patient with Dr. Smith, he agrees with the plan of care. Thank you for allowing us to participate in the patients plan of care, if you have any questions please do not hesitate to call. This note was generated using a voice recognition system and there may be incorrect words, spelling or punctuation that were not noted when reviewing the office note prior to saving. Coding Level of Care Code Off vis,est,level 3 Diagnoses Persistent atrial fibrillation I48.1 Dyspnea on exertion R06.09 Hyperlipidemia, unspecified hyperlipidemia type E78.5 ??Hyperlipidemia type: unspecified Essential hypertension I10 ??Hypertension type: essential hypertension Coding Level of Care Code Off vis,est,level 3 Diagnoses Persistent atrial fibrillation I48.1 Dyspnea on exertion R06.09 Hyperlipidemia, unspecified hyperlipidemia type E78.5 ??Hyperlipidemia type: unspecified Essential hypertension I10 ??Hypertension type: essential hypertension Supplemental Info Supplemental Information Stress echocardiogram from 12/11/2018: Interpretation summary Estimate ejection fraction is 65%. Normal, adequate, modified Tyler treadmill echocardiogram. Negative for ischemia by EKG and echocardiographic criteria. No angina symptoms noted. Patient had a baseline atrial fibrillation which continued throughout test. Rare PVCs and ventricular couplets during testing. Hypertensive blood pressure response appropriate blood pressure response to exercise. Below average exercise capacity for age. Test terminated due to attainment of target heart rate, dyspnea and fatigue. Final LVEF is 75%. No complications. Echocardiogram from 04/17/2018: Interpretation Summary Normal LV size. Moderate concentric left ventricular hypertrophy. Left ventricular systolic function is normal. The estimated ejection fraction is 55 %. Transmitral diastolic flow velocities suggest severe (stage 3) diastolic dysfunction Bubble contrast study negative for right to left interatrial shunt. Labs LDL Cholesterol 41 mg/dL (0-130) 04/17/18 HDL Cholesterol 60 mg/dL (40-) 04/17/18 Triglycerides 49 mg/dL (-199) 04/17/18 VLDL Cholesterol 10 mg/dL (5-40) 04/17/18 Diagnostics Electrocardiogram 12/29/18 Echocardiogram 04/16/18 Chest X-Ray 12/29/18 12/30/18 0802 <Electronically signed by Umer GANT> Date Umer LEMONC
--- NOTE | 2019-01-07 08:30 | RAD_ITS ---
STUDY: X-RAY CHEST REASON FOR EXAM: Male, 78 years old. Worsening shortness of breath TECHNIQUE: PA and lateral views of the chest. COMPARISON: 12/29/2018 FINDINGS: Moderate size right pleural effusion with underlying infiltration and/or atelectasis. Small left pleural effusion with left basilar atelectasis. Normal size heart. Normal mediastinum and javier. Normal visualized pulmonary arteries. There is atherosclerotic calcification of the aortic arch with tortuosity. There are diffuse degenerative changes of the visualized thoracic spine. There is degenerative osteoarthritis of the bilateral shoulders. There is no demonstrated abnormality of the visualized soft tissue structures of the upper abdomen. RAD/Chest PA and Lateral IMPRESSION: Bilateral pleural effusions with underlying infiltration and/or atelectasis worse on the right side. No interval change Electronically Signed: Rubin Rodriguez MD at 17:55 EDT , Service support ,
== END ==
PROVIDERS: Family Provider Family Medicine; PCP Family Medicine; Referring Provider Internal Medicine Cardiovascular Disease; Visit Provider Internal Medicine Cardiovascular Disease
DX: Z01.818 Encounter for other preprocedural examination (principal); R06.02 Shortness of breath
CPT/HCPCS: 71046

== ENCOUNTER → 2019-01-18 08:32 | Outpatient (CLI) | payer SELFPAY ==
[2018-11-09 10:20] VITALS: BMI 26.9
--- NOTE | 2019-01-18 08:38 | RAD_ITS ---
STUDY: X-RAY CHEST REASON FOR EXAM: Male, 78 years old. Pleural effusion TECHNIQUE: PA and lateral views of the chest. COMPARISON: Previous study of January 07, 2019 FINDINGS: A moderate-sized right-sided pleural effusion is again noted. This effusion may be at least partially loculated. There appears to be underlying atelectasis or infiltrate. A small left-sided effusion is also noted. There are fibrotic changes of the left lung base. Normal size heart. Normal mediastinum and javier. Normal visualized pulmonary arteries. There are calcified plaques of the aortic arch. There are diffuse degenerative changes of the visualized thoracic spine. Normal visualized ribs, clavicles, and shoulders. There is no demonstrated abnormality of the visualized soft tissue structures of the upper abdomen. RAD/Chest PA and Lateral IMPRESSION: Moderate sized right-sided pleural effusion is again noted which may be at least partially loculated. There again appears to be minimal underlying atelectasis or infiltrate. A small left-sided effusion is also noted. There is left basilar fibrosis. Calcified plaques of the aortic arch. Degenerative changes of the thoracic spine. Findings are similar to the previous study. Electronically Signed: Colt Day MD at 19:34 EDT , Service support ,
[2019-01-18 10:35] LABS: Anion Gap 11 (5-15); BUN 66 mg/dL (7-18); BUN/Creat Ratio 31.9 RATIO (10-20); Chloride 92 mmol/L (98-107); Creatinine, Serum 2.07 mg/dL (0.70-1.30); EST Glomerular Filtration Rate 33 mL/min (>60); Est Glom Filt Rate - Afr Amer 40 mL/min (>60); Glucose 251 mg/dL (74-106); Potassium 3.8 mmol/L (3.5-5.1); Sodium Level 135 mmol/L (136-145)
[2019-01-18 10:57] LABS: Prothrombin Time (Protime)PT. 39.5 SECONDS (11.7-14.9)
== END ==
PROVIDERS: Internal Medicine Cardiovascular Disease; Family Provider Family Medicine; PCP Family Medicine; Referring Provider Nurse Practitioner Family; Visit Provider Nurse Practitioner Family
DX: J90 Pleural effusion, not elsewhere classified (principal); E11.9 Type 2 diabetes mellitus without complications; I10 Essential (primary) hypertension; I48.1 Persistent atrial fibrillation; Z79.01 Long term (current) use of anticoagulants
CPT/HCPCS: 36415; 71046; 80048; 85610

== ENCOUNTER 2019-01-27 13:33 | Outpatient (RCR) | payer SELFPAY ==
[2018-11-09 10:20] VITALS: BMI 26.9
[2019-01-27 14:08] LABS: Prothrombin Time (Protime)PT. 37.5 SECONDS (11.7-14.9)
[2019-01-27 14:11] LABS: International Normalized Ratio 3.8
--- NOTE | 2019-02-03 09:16 | RAD_ITS ---
STUDY: X-RAY CHEST REASON FOR EXAM: Male, 78 years old. Shortness of breath TECHNIQUE: PA and lateral views of the chest. COMPARISON: Prior study of 01/18/2019 FINDINGS: A moderate right-sided pleural effusion which may be loculated is again noted. There appears to be underlying right lower lung field infiltrate and/or atelectasis. There is a calcified granuloma the left midlung field. A small left-sided effusion is also noted. Left basilar fibrotic changes are seen. Normal size heart. Normal mediastinum and javier. Normal visualized pulmonary arteries. There are calcified plaques of the aortic arch. There are mild diffuse degenerative changes of the thoracic spine. Normal visualized ribs, clavicles, and shoulders. There is no demonstrated abnormality of the visualized soft tissue structures of the upper abdomen. RAD/Chest PA and Lateral IMPRESSION: Bilateral effusions. There again appears to be an underlying right lower lung field infiltrate and/or atelectasis. Left basilar fibrotic changes are seen. Calcified plaques of the aortic arch. Findings are similar to the previous study. Electronically Signed: Colt Day MD at 22:09 EDT , Service support ,
[2019-02-03 09:31] LABS: Prothrombin Time (Protime)PT. 68.8 SECONDS (11.7-14.9)
== END 2019-01-27 15:00 | disposition home or self-care (01) ==
LOC: LAB 13:33
PROVIDERS: Family Provider Family Medicine; PCP Family Medicine; Referring Provider Internal Medicine Cardiovascular Disease; Visit Provider Internal Medicine Cardiovascular Disease
DX: I48.1 Persistent atrial fibrillation (principal); Z79.01 Long term (current) use of anticoagulants
CPT/HCPCS: 36415; 71046; 85610

== ENCOUNTER 2019-02-26 08:19 | Outpatient (RCR) | payer OTHER, SELFPAY ==
[2019-01-27 15:58] VITALS: BMI 26.9
[2019-02-05 08:43] LABS: Absolute Neutrophil Count 6.1 X10^3/uL (2.0-7.7); Basophil# 0.01 X10^3/uL; Basophil% 0.1 % (0-1); Differential Indicated SCAN CRITERIA MET; Eosinophil# 0.06 X10^3/uL; Eosinophils% 0.8 % (0-5); Hematocrit 34.3 % (40-54); Hemoglobin 10.9 g/dl (13.0-16.5); Lymphocyte % 8.2 % (19-41); Mean Corp Hgb Conc 31.8 g/gl (32-36); Mean Corpuscular Hgb 28.8 pg (27.0-32.0); Mean Corpuscular Volume 90.7 fL (80-94); Monocyte# 0.56 X10^3/uL; Monocyte% 7.7 % (0-10); Neutrophil # 6.07 X10^3/uL (2.7-7.7); Neutrophil % 83.1 % (47-70); POSITIVE COUNT NO; POSITIVE DIFFERENTIAL YES; POSITIVE MORPHOLOGY NO; Platelet Count 301 K/mm3 (150-450); Red Blood Count 3.78 M/mm3 (4.6-6.2); White Blood Count 7.3 K/mm3 (4.4-11.0)
[2019-02-05 08:59] LABS: ALB/GLOB Ratio 0.5 RATIO (0.9-2.4); AST(SGOT) 19 U/L (15-37); Alanine Aminotransfer ALT/SGPT 15 U/L (16-61); Albumin, Serum 2.8 g/dL (3.2-5.0); Alkaline Phosphatase 166 U/L (45-117); Anion Gap 5 (5-15); BUN 24 mg/dL (7-18); BUN/Creat Ratio 21.1 RATIO (10-20); Calcium,Total 9.1 mg/dL (8.5-10.1); Chloride 103 mmol/L (98-107); Creatinine, Serum 1.14 mg/dL (0.70-1.30); EST Glomerular Filtration Rate 66 mL/min (>60); Est Glom Filt Rate - Afr Amer 80 mL/min (>60); Globulin 5.2 g/dL (2.2-4.2); Glucose 149 mg/dL (74-106); Potassium 4.6 mmol/L (3.5-5.1); Sodium Level 136 mmol/L (136-145)
[2019-02-05 09:05] LABS: International Normalized Ratio 6.5
[2019-02-09 08:56] LABS: International Normalized Ratio 3.6
[2019-02-15 11:50] LABS: International Normalized Ratio 1.9; Prothrombin Time (Protime)PT. 22.1 SECONDS (11.7-14.9)
[2019-02-22 09:02] LABS: Prothrombin Time (Protime)PT. 22.7 SECONDS (11.7-14.9)
[2019-02-26 09:08] LABS: Hematocrit 31.9 % (40-54); Hemoglobin 9.9 g/dl (13.0-16.5); Mean Corpuscular Hgb 28.4 pg (27.0-32.0); Mean Corpuscular Volume 91.7 fL (80-94); Mean Platelet Vol. 9.1 fl (6.2-12.0); Platelet Count 381 K/mm3 (150-450); RBC Distribution Width SD 49.6 fl (35.1-43.9); Red Blood Count 3.48 M/mm3 (4.6-6.2); White Blood Count 5.9 K/mm3 (4.4-11.0)
[2019-02-26 09:09] LABS: Scan Indicated on CBC? Y/N NO
[2019-02-26 09:13] LABS: International Normalized Ratio 1.8; Prothrombin Time (Protime)PT. 20.9 SECONDS (11.7-14.9)
[2019-02-26 09:14] LABS: Partial Thromboplast Time 43.9 Seconds (24.1-36.2)
[2019-02-26 09:30] LABS: LDH 171 U/L (87-241)
== END 2019-02-28 12:00 | disposition home or self-care (01) ==
LOC: LAB 08:19
PROVIDERS: Physician Assistant Medical; Family Provider Family Medicine; PCP Family Medicine; Referring Provider Internal Medicine Cardiovascular Disease; Visit Provider Internal Medicine Cardiovascular Disease
DX: I48.1 Persistent atrial fibrillation (principal); Z79.01 Long term (current) use of anticoagulants; R06.09 Other forms of dyspnea; E11.9 Type 2 diabetes mellitus without complications; R53.1 Weakness; J90 Pleural effusion, not elsewhere classified
CPT/HCPCS: 36415; 80053; 83615; 85025; 85027; 85610; 85730

== ENCOUNTER → 2019-03-01 07:59 | Outpatient (CLI) | payer OTHER, SELFPAY ==
[2019-01-27 15:58] VITALS: BMI 26.9
--- NOTE | 2019-03-01 | FLU_PTH ---
PATIENT: NAILA COSTA LOC: [facility]#:[id number] AGE/SX: 84/M ROOM: RE03/01/[address]: Dr. Tyler Jain MD : 1940 BED: DIS: SPEC #: [id number] RECD: 03/01/19 09:28 STATUS: ATILIO OLEG #: [id number] LA: 03/01/19 00:[address]: Tyler Jain DEPT: CYTOLOGY RECD BY: Mahin Clemons ENTERED: 03/01/19 10:47 SP TYPE: Fluid OTHR DR: Dr. Mohit Palacio, DO Tissues: Pleural fluid, NOS Procedures: Special Stain Group II Surgery Specimen Level IV Cytospin Fluid HEADER OPERATION: Ultrasound-guided thoracentesis PRE-OP DIAGNOSIS: Pleural effusion TISSUE SUBMITTED: Thoracentesis fluid for cytology DIAGNOSIS CYTOLOGY Thoracentesis fluid for cytology (cytospin and cell block): Negative for malignant cells. AM:vishal 7/2/19 CYTOLOGY STUDY Slides are reviewed. CYTOLOGY GROSS Received is 105 ml of cloudy red fluid labeled with the patient's name and and designated per the requisition as thoracentesis fluid. Submitted for cytology preparation including cell block. 03/01/19 TC:5 CPT: 99032, 00814
--- NOTE | 2019-03-01 08:02 | US_ITS ---
PROCEDURE: ULTRASOUND GUIDED THORACENTESIS. DATE: March 01, 2019. INDICATION: Male, 78 years old. Right pleural effusion. PHYSICIAN: Garcia Joy M.D. PROCEDURE: The risks, benefits, and alternatives to the procedure were explained to the patient. The specific risks of bleeding, infection, and pneumothorax requiring chest tube insertion were discussed and accepted. Written informed consent was obtained. Ultrasonographic evaluation of the right lower pleural space was carried out. An adequate pocket was identified. The patient was placed in the sitting, upright position. The overlying skin was prepped and draped in sterile fashion. 1% lidocaine was administered subcutaneously for local anesthesia. Under ultrasound guidance, a 5 Fijian thoracentesis needle/catheter system was advanced into the right posterior lower pleural fluid collection. Approximately 870 mL of blood tinged fluid was drained. The catheter was removed, and a sterile dressing was applied. A specimen was collected and sent to the laboratory for analysis, as requested by the referring clinician. The patient tolerated the procedure well. A chest x-ray was ordered. US/Thoracentesis W US IMPRESSION: Ultrasound-guided right thoracentesis. Electronically Signed: Garcia Joy, at 11:14 EDT , Service support ,
--- NOTE | 2019-03-01 09:20 | RAD_ITS ---
STUDY: X-RAY CHEST REASON FOR EXAM: Male, 78 years old. Status post right thoracentesis. TECHNIQUE: AP inspiration and expiration views. COMPARISON: Comparison is made with prior study dated February 03, 2019. FINDINGS: The patient is status post right thoracentesis. There is evidence of a small loculated pneumothorax along the lateral inferior aspect of the right hemithorax. Residual small bilateral effusions with underlying atelectasis. RAD/Chest Insp/Exp 2 View IMPRESSION: Status post right thoracentesis. Small loculated right pneumothorax as described. The patient is asymptomatic. Electronically Signed: Garcia Joy, at 15:53 EDT , Service support ,
[2019-03-01 09:52] VITALS: BP 124/66; BP 138/75; BP 139/96; PULSE 103; PULSE 105; PULSE 99; RESP 14; RESP 16; O2SAT 96
[2019-03-01 09:54] LABS: Body Fluid Mononuclear WBC # 0.364 10^3/uL; Body Fluid Mononuclear WBC % 93.8 %; Body Fluid Polynuclear WBC # 0.024 10^3/uL; Body Fluid Polynuclear WBC % 6.2 %; White Blood Count/Body Fluid 0.388 10^3/uL
[2019-03-01 10:01] LABS: Appearance/Body Fluid SL CLDY; Auto B Fluid Analyzer BKGD Ct COUNTS W/IN LIMITS (W/IN LIMITS); Color/Body Fluid PINK; Source- Body Fluid THORACENTESIS
[2019-03-01 11:07] LABS: Glucose, Body Fluid 46 mg/dL (40-70); LDH,Body Fluid 174 Units/l (Not Establ.); Protein, Body Fluid 3.2 g/dL (Not Establ.)
[2019-03-01 11:10] LABS: Lymphocytes 79 %; Monocytes 14 %; Neutrophil (Segs) 7 %
[2019-03-01 11:11] LABS: Body Fluid QC Type(s) BF1Q
[2019-03-03 09:59] LABS: Pathologist Comment/Body Fluid Reviewed
== END ==
PROVIDERS: Family Provider Family Medicine; PCP Family Medicine; Referring Provider Internal Medicine Critical Care Medicine; Visit Provider Internal Medicine Critical Care Medicine
DX: J90 Pleural effusion, not elsewhere classified (principal); R06.09 Other forms of dyspnea
CPT/HCPCS: 32555; 71046; 82945; 83615; 84157; 88108; 88305; 88313; 89050

== ENCOUNTER → 2019-03-18 08:01 | Outpatient (CLI) | payer SELFPAY ==
[2019-03-09 11:09] VITALS: BMI 26.9
--- NOTE | 2019-03-18 08:02 | CT_ITS ---
STUDY: CT CHEST WITHOUT CONTRAST REASON FOR EXAM: Male, 78 years old. Pleural effusion follow-up RADIATION DOSAGE (If Supplied By Facility): DLP = ( 538.11 ) mGycm TECHNIQUE: Transaxial imaging was performed without the administration of intravenous contrast material. Coronal and sagittal reformatted images were created. Individualized dose optimization techniques were used for this CT. COMPARISON: CTA chest January 22, 2016 FINDINGS: There is a large right-sided pleural effusion with adjacent atelectasis. There is a small left pleural effusion. There are stable right greater than left partially calcified pleural plaques. The heart and pericardium are within normal limits. Mildly prominent mediastinal lymph nodes are noted. There is no evidence of thoracic aortic aneurysm. Images through the upper abdomen demonstrate no significant abnormality. There are no destructive osseous lesions. CT/Chest without Contrast IMPRESSION: Large right pleural effusion and small left pleural effusion with adjacent atelectasis. Right greater than left partially calcified pleural plaques similar in appearance to prior. Electronically Signed: Juan Francisco Morel, at 17:04 EDT Tel , Service support ,
== END ==
PROVIDERS: Family Provider Family Medicine; PCP Family Medicine; Referring Provider Internal Medicine Critical Care Medicine; Visit Provider Internal Medicine Critical Care Medicine
DX: J90 Pleural effusion, not elsewhere classified (principal)
CPT/HCPCS: 71250

== ENCOUNTER 2019-03-23 14:19 | Outpatient (RCR) | payer OTHER, SELFPAY ==
[2019-01-27 15:58] VITALS: BMI 26.9
[2019-03-05 15:32] LABS: International Normalized Ratio 1.5; Prothrombin Time (Protime)PT. 17.6 SECONDS (11.7-14.9)
[2019-03-15 12:48] LABS: International Normalized Ratio 3.4; Prothrombin Time (Protime)PT. 34.7 SECONDS (11.7-14.9)
[2019-03-23 15:54] LABS: International Normalized Ratio 3.1; Prothrombin Time (Protime)PT. 32.4 SECONDS (11.7-14.9)
== END 2019-03-23 15:00 | disposition home or self-care (01) ==
LOC: LAB 14:19
PROVIDERS: Family Provider Family Medicine; PCP Family Medicine; Referring Provider Internal Medicine Cardiovascular Disease; Visit Provider Internal Medicine Cardiovascular Disease
DX: I48.1 Persistent atrial fibrillation (principal); Z79.01 Long term (current) use of anticoagulants
CPT/HCPCS: 36415; 85610

== ENCOUNTER 2019-04-01 14:15 | Day surgery (SDC) | payer OTHER, SELFPAY ==
[2019-03-23 14:49] VITALS: BMI 24.9
[2019-03-30] MEDS: Cefazolin 2 GM in 0.9% Normal Saline 100 ML IV (18:45)
--- NOTE | 2019-03-30 18:56 | HP.PCM_ITS ---
History and Physical Date of Admission: 04/01/19 HISTORY AND PHYSICAL ? Nazario Vicente 1940 ? ? REFERRING PHYSICIAN: ??Tyler Jain MD ? CHIEF COMPLAINT: ??Consult (Consult Pleurex) ? HPI: The patient is a 78 year old male with a diagnosis of?right recurrent pleural effusion. ?Nazario is have recurrent accumulation of his right pleural effusion is noted on CT scan of the chest from March 18, 2019. ?Prior to that, he had undergone an ultrasound guided thoracentesis on March 01 draining approximately 870 mL of slightly blood-tinged fluid. ?Fluid return to slightly pink with 390?WBCs -?with 79% lymphocytes 14% monocytes and 7% neutrophils and 369 nuclear cells?-mostly mononuclear cells-94%.???Cytology was negative for malignant cells. ? Due to his recurrent pleural effusion, the patient was seen on March 23, [address] Tyler Jain's office and recommended Pleurx catheter placement versus repeat thoracenteses. ?The family decided against repeat thoracentesis and wished for a Pleurx catheter placement. ? The patient has a history of bilateral lower extremity edema. ?He is limited in the past for congestive heart failure. ?He has a history of atrial fibrillation for which he is on Coumadin currently. ? The patient is referred for evaluation for placement of a tunnelled?right pleural?catheter or Pleurex catheter ? The patient is being seen by me today at the request of ?for my opinion and advice regarding Pleurex?catheter placement.? ? ? PAST MEDICAL HISTORY PAST MEDICAL HISTORY Diagnosis Date ? Atrial fibrillation (HCC) ? ? CVA (cerebral vascular accident) (HCC) ? ? DM (diabetes mellitus) (HCC) ? ? HTN (hypertension) ? ? Hyperlipidemia ? ? Patent foramen ovale ? ? Ventricular tachycardia (HCC) ? ? ? PAST SURGICAL HISTORY PAST SURGICAL HISTORY Procedure Laterality Date ? HEART CATHETERIZATION ? 10/08/2007 ? ? CURRENT MEDICATIONS Current Outpatient Medications Medication Sig Dispense Refill ? lisinopril (ZESTRIL, PRINIVIL) 10 mg tablet Take 10 mg by mouth once daily. ? ? ? sitaGLIPtin (JANUVIA) 50 mg tablet Take 50 mg by mouth once daily. ? ? ? metFORMIN (GLUCOPHAGE) 1,000 mg tablet Take 1,000 mg by mouth twice daily with meals. ? ? ? glipiZIDE (GLUCOTROL) 5 mg tablet Take by mouth twice daily. ? ? ? metoprolol tartrate, short acting, (LOPRESSOR) 50 mg tablet Take 50 mg by mouth twice daily. ? ? ? Hydrochlorothiazide 12.5 mg capsule Take 12.5 mg by mouth once daily. ? ? ? potassium chloride (KLOR-CON) 20 mEq packet Take by mouth once daily. ? ? ? pioglitazone (ACTOS) 45 mg tablet Take 45 mg by mouth once daily. ? ? ? simvastatin (ZOCOR) 40 mg tablet Take 40 mg by mouth daily at bedtime. ? ? ? warfarin (COUMADIN) 4 mg tablet Take 4 mg by mouth daily as directed. ? ? ? amiodarone (PACERONE) 200 mg tablet Take by mouth once daily. ? ? ? No current facility-administered medications for this visit.? ? ALLERGIES:?Patient has no known allergies. ? PERSONAL HISTORY:? SOCIAL HISTORY Social History ??Socioeconomic History ?Marital status: ?Spouse name: Not on file ?Number of children: Not on file ?Years of education: Not on file ?Highest education level: Not on file ??Occupational History ?Not on file ??Social Needs ?Financial resource strain: Not on file ?Food insecurity: ?Worry: Not on file ?Inability: Not on file ?Transportation needs: ?Medical: Not on file ?Non-medical: Not on file ??Tobacco Use ?Smoking status: Never Smoker ?Smokeless tobacco: Never Used ??Substance and Sexual Activity ?Alcohol use: Not on file ?Drug use: Not on file ?Sexual activity: Not on file ??Lifestyle ?Physical activity: ?Days per week: Not on file ?Minutes per session: Not on file ?Stress: Not on file ??Relationships ?Social connections: ?Talks on phone: Not on file ?Gets together: Not on file ?Attends buddhism service: Not on file ?Active member of club or organization: Not on file ?Attends meetings of clubs or organizations: Not on file ?Relationship status: Not on file ?Intimate partner violence: ?Fear of current or ex partner: Not on file ?Emotionally abused: Not on file ?Physically abused: Not on file ?Forced sexual activity: Not on file ??Other Topics ?Concerns: ?Not on file ??Social History Narrative ?Not on file ? FAMILY HISTORY:? FAMILY HISTORY FAMILY HISTORY Problem Relation Age of Onset ? Heart Failure Mother ? ? Ischemic Heart Disease Father ? ? Heart Father ? ? REVIEW OF SYMPTOMS: ??The review of systems data was entered by the nurse and reviewed by me ? There are no exam notes on file for this visit. ? ? PHYSICAL EXAMINATION: ? General: ?The patient is 78 year old male, well nourished, well hydrated in no acute distress. ?The patient is oriented to time, place, and person. ? VITALS:?Blood pressure 104/68, pulse 114, temperature 36.7 ?C (98.1 ?F), height 175.3 cm (5' 9), weight 75.3 kg (166 lb), SpO2 94 %.?Body mass index is 24.51 kg/m?.? ? HEENT: ?Normal cephalic, ataumatic, pupils are equally round, sclera are anicteric, mucous membranes are moist, oropharynx is clear. ?Neck has no masses, asymmetry or lymphadenopathy. ?Thyroid is unremarkable. ? Respiratory:??Decreased to?auscultation and?dullness to?percussion over the right lung field up to about longterm through the lung field. ?Upper right lung field and left lung velasco are unremarkable. ?Normal respiratory excursion and pattern. ? Cardiac: ?Examination is irregular rhythm. ? Abdominal exam: ?Soft, nontender, ?with no palpable masses. ?No hepatosplenomegaly. ?No palpable hernias. ? Rectal exam:??exam deferred ? Extremities: ?no clubbing, cyanosis or edema. ?No adenopathy. ? Other: ? ? LABORATORY VALUES: As Noted ? RADIOLOGIC STUDIES: ?As Noted ? Assessment ? IMPRESSION:??Recurring right pleural effusion likely secondary to heart failure, ? PLAN: ??I plan to perform a tunnelled right pleural?catheter or Pleurex catheter placement. ?The planned surgical procedure was discussed extensively with the patient. ?The risks, benefits, anticipated outcomes and possible complications were mentioned. ?My staff has also explained the procedure in understandable terms and the patient was given the option to take printed material concerning the planned procedure. ?The patient had the opportunity to ask questions concerning the planned procedure. ?The patient freely consents to the planned procedure. ? The patient will hold his Coumadin starting today. ?I have ordered an INR which unfortunately has not returned yet. ?We will consider ordering an INR for the morning of the procedure if today's INR is over 3. ? Anticipated Surgical Procedure/ CPT Code:?14305 - Insertion of Tunnelled Pleural Catheter - Right and 97087 - Ultrasound Guidance for Needle Placement ? Anticipated Anesthetic:?MAC with local ? Patient weight:??Blood pressure 104/68, pulse 114, temperature 36.7 ?C (98.1 ?F), height 175.3 cm (5' 9), weight 75.3 kg (166 lb), SpO2 94 %.?BMI: ?Body mass index is 24.51 kg/m?. ? Planned antibiotic:?Ancef 2gm IVPB continuing education director to OR ? SCDs needed -?No ? Shift Leader Needed -?No ?? ? Diagnoses:?(J90) Pleural effusion on right ?(primary encounter diagnosis) (Z92.29) History of Coumadin therapy ? ? The patient is being seen by me today at the request of ?for my opinion and advice regarding right recurrent pleural effusion.? Doe Hart MD
[2019-04-01] VITALS (11 sets, daily range): BP systolic 96–125; BP diastolic 61–88; PULSE 79–117; RESP 18–20; TEMP 36.5–37; O2SAT 94–97; BMI 24.5
[2019-04-01 15:00] LABS: Bedside Glucose 119 mg/dL (70-110)
[2019-04-01 15:10] LABS: International Normalized Ratio 1.6
[2019-04-01 16:07] LABS: Prothrombin Time Fingerstick 21.2 SEC (11.9-14.4)
[2019-04-01] MEDS: Bupivacaine Mpf 0.5% 30 ML VIAL (19:00)
--- NOTE | 2019-04-01 19:41 | PCM.OPRPT ---
Report of Operation Date of Procedure: 04/01/19 Pre-Operative Diagnosis: right recurrent pleural effusion Post-Operative Diagnosis: right recurrent pleural effusion - proximally 500 cc of pleural fluid removed, likely poor lung compliance Surgery/Procedure Performed:: ultrasound-guided right tunneled pleural/Pleurx catheter fish dressing machine feeder: None Type of Anesthesia:: Local MAC Anesthesiologist: Francisco Drake - ASA3 Specimen's removed: right pleural fluid - sent for cytology and body fluid analysis Drains: right pleural catheter Estimated Blood Loss (mL): minimal Fluids Replaced: 1000 Description of Procedure: The patient was brought to the operating suite. The right chest site was marked in the holding area and the patient concurred this was the planned operative site. Sign was performed verifying patient, site, position, skip antibiotic prophylaxis-2 g of Ancef and DVT prophylaxis not given as patient is on Coumadin for cardiac failure Ultrasound was used to evaluate the right thoracic space and pleural fluid was noted to be at the planned site which was marked on the skin Following IV sedation, right chest and upper lateral abdomen were prepped and draped in the usual fashion. Timeout was performed verifying patient, site, position. Local anesthetic was injected and a Seldinger needle was used to access the right pleural space with some initial difficulty but then under ultrasound guidance straw-colored fluid was able to be aspirated with mild difficulty. a guidewire was inserted and advanced into the pleural space. Local anesthetic was injected and incision made for the catheter exit site. Next the catheter was tunneled from the skin exit site to the wire. Dilators were placed over the wire until the largest dilator with introducer sheath were placed. The wire and dilator removed. The catheter was fed through the introducer suture sheath and adjusted to the edge of the pleural surface with the fenestrations . There was good return of pleural fluid. The Pleurx catheter was affixed to an adapter and attached to a Pleur-evac at 20 cm suction. A total of approximately 500 cc of fluid was drained. - 300 cc and Pleur-evac and 200 cc sent for cytology and cell count. Interestingly, after aspirating with a syringe and injecting fluid into the Pleur-evac there seemed to be fluid wind up drop back into the thoracic space consistent with a poorly compliant lung. The catheter was secured with a 3-0 silk suture at the skin exit site. The thoracic site. Skin was closed with 4-0 Biosyn interrupted subcuticular sutures. Dermabond was applied to the thoracic site. A dressing was applied. The joints were taped and a large dressing placed over the drain exit site. The patient was brought to recovery room in stable condition with plans for a postprocedure chest x-ray.
--- NOTE | 2019-04-01 19:45 | RAD_ITS ---
STUDY: X-RAY CHEST REASON FOR EXAM: Male, 78 years old. Chest pain TECHNIQUE: Frontal view of the chest COMPARISON: X-ray chest March 01, 2019 FINDINGS: There has been interval placement of a right sided catheter terminating in the right lower lung zone. Right greater than left lower lung zone atelectasis/small infiltrate are present. There are small bilateral pleural effusions. Stable pleural calcifications are present. The heart is enlarged. The visualized osseous structures are within normal limits. RAD/Chest 1 View (Portable) IMPRESSION: Interval placement of right-sided chest catheter terminating in the right lower lung zone. Stable pleural and parenchymal opacities and cardiomegaly. Electronically Signed: Juan Francisco Morel, at 20:04 EDT Tel , Service support ,
--- NOTE | 2019-04-01 19:57 | FLU_PTH ---
PATIENT: NAILA COSTA LOC: [facility] [place] U#:[id number] AGE/SX: 78/M ROOM: RE04/01/[address]: Dr. Doe Hart MD : 1940 BED: DIS: 04/02/2019 SPEC #: [id number] RECD: 04/02/19 10:12 STATUS: ATILIO RENatalie #: [id number] LA: 04/01/19 19:[address]: Doe Hart DEPT: CYTOLOGY RECD BY: Yevgeniy Hart ENTERED: 04/02/19 10:13 SP TYPE: Fluid OTHR DR: Dr. Mohit Palacio DO Tissues: Pleural fluid, NOS Procedures: Special Stain Group II Surgery Specimen Level IV Cytospin Fluid HEADER OPERATION: Ultrasound-guided right tunneled pleural/Pleurx catheter PRE-OP DIAGNOSIS: Right recurrent pleural effusion TISSUE SUBMITTED: Right pleural fluid for cytology DIAGNOSIS CYTOLOGY Ultrasound-guided right tunneled pleural fluid for cytology (cytospin and cell block): Negative for malignant cells. AM:vishal 04/05/19 CYTOLOGY STUDY Slides are reviewed. CYTOLOGY GROSS Received is 50 ml of cloudy red fluid labeled with the patient's name and and designated per the requisition as right pleural fluid. Submitted for cytology preparation including cell block. / 04/02/19 TC:5 CPT: 46393, 12431
[2019-04-01 20:01] LABS: Cytology, Body Fluid / CSF SEE PATHOLOGY REPORT
[2019-04-01 20:22] LABS: ALB/GLOB Ratio 0.6 RATIO (0.9-2.4); Globulin 4.9 g/dL (2.2-4.2); LDH 147 U/L (87-241); Protein, Total 7.7 g/dL (6.4-8.2)
[2019-04-01 20:25] LABS: Body Fluid Mononuclear WBC % 95.8 %; Body Fluid Polynuclear WBC # 0.007 10^3/uL; Body Fluid Polynuclear WBC % 4.2 %; Body Fluid Total Cells Counted 0.167 10^3/ul; Red Cell Count/Body Fluid 0.016 10^6/ul; White Blood Count/Body Fluid 0.167 10^3/uL
[2019-04-01 20:33] LABS: Auto B Fluid Analyzer BKGD Ct COUNTS W/IN LIMITS (W/IN LIMITS); Color/Body Fluid PINK
[2019-04-01 20:34] LABS: Appearance/Body Fluid SL CLDY; Glucose, Body Fluid 58 mg/dL (40-70); LDH,Body Fluid 135 Units/l (Not Establ.); Protein, Body Fluid 3.3 g/dL (Not Establ.)
[2019-04-01 20:39] LABS: Body Fluid QC Type(s) BF1Q
[2019-04-01 20:40] LABS: Source- Body Fluid PLEURAL FLUID
[2019-04-01] MEDS: Metoprolol Tartrate 50 MG Tablet PO (21:35)
[2019-04-01] MEDS: Atorvastatin Calcium 20 MG Tablet PO (21:35)
[2019-04-01] MEDS: Lactated Ringers 1,000 ML 30 ML IV (21:41)
[2019-04-01] MEDS: Cefazolin 2 GM in 0.9% Normal Saline 100 ML IV (21:41)
[2019-04-02 03:50] VITALS: PULSE 92; RESP 20; O2SAT 99
[2019-04-02 03:53] VITALS: BP 108/65; PULSE 92; RESP 20; TEMP 37; O2SAT 99
--- NOTE | 2019-04-02 05:00 | RAD_ITS ---
HISTORY: Pleural Effusion ADDITIONAL HISTORY: None provided. COMPARISON: 04/01/2019 TECHNIQUE: Frontal chest radiograph. Number of images including paperwork: 1 FINDINGS: LUNGS AND PLEURA: Right sided pleural drainage catheter remains. There appears to be an adjacent small right pneumothorax. No sizable pleural effusion. Opacities in the right mid to lower lung appear similar. Small left pleural effusion and left basilar opacity, similar to previous. CARDIAC SILHOUETTE: Unremarkable. MEDIASTINUM AND SYIBL: Unchanged aortic calcification and tortuosity. UPPER ABDOMEN: Unremarkable. SKELETON AND SOFT TISSUES: No acute findings. Degenerative changes. OTHER DEVICES AND HARDWARE: None. RAD/Chest 1 View (Portable) IMPRESSION: No significant interval change. at 4118 Reported and signed by: Annika Goodman MD Electronically Signed: Annika Goodman MD at 5:28 EDT Tel , Service support ,
--- NOTE | 2019-04-02 06:13 | CT_ITS ---
HISTORY: PLEURAL EFFUSION, POST CATHETER PLACEMENT TECHNIQUE: Helically acquired images of the chest were obtained without IV contrast. Number of images including paperwork: 800. A radiation dose optimization technique was used for this scan. COMPARISON: 03/18/2019 FINDINGS: VASCULATURE: Aortic calcification and tortuosity. HEART/PERICARDIUM: Cardiomegaly. Coronary calcification. Small amount of pericardial fluid versus thickening. MEDIASTINUM: Unremarkable. ADENOPATHY: No pathologic appearing adenopathy. THYROID: Unremarkable visualized portions. LUNG PARENCHYMA: Bilateral opacities are predominantly linear and bandlike, compatible subsegmental atelectasis and/or scarring, minimal interval change. PLEURAL SPACES: Loculated right-sided hydropneumothorax with some pleural thickening, pleural drainage catheter coiled within the pleural space. Pleural calcifications bilaterally. Small left pleural effusion with pleural thickening. Fat-containing left sided Bochdalek hernia. UPPER ABDOMEN: Unremarkable. OSSEOUS AND SOFT TISSUE STRUCTURES: No acute skeletal findings. Degenerative changes. Small amount of right chest wall soft tissue gas. DEVICES: None. CT/Chest without Contrast IMPRESSION: 1. Loculated right hydropneumothorax, overall size is similar to previous pleural effusion, now with pleural drainage catheter. 2. Otherwise no significant interval change. Individualized dose optimization techniques were used for this CT. at 0718 Reported and signed by: Annika Goodman MD Electronically Signed: Annika Goodman MD at 7:18 EDT Tel , Service support ,
--- NOTE | 2019-04-02 06:16 | DCINST_ITS ---
You will use the following diet at home:: No restrictions Discharge Activity: May Shower Call your doctor if your incision/area has: Continuous Slow Oozing, Sudden Increased Bleeding, Increased Pain/ Swelling Call your doctor if you observe: Shortness of breath, Chest pain Allergies/Adverse Reactions: Allergies No Known Allergies Allergy (Verified 03/31/19 14:02) Medications to take at Discharge Lisinopril [Zestril] 5 mg PO DAILY 01/22/16 Metoprolol Tartrate [Lopressor (beta anand)] 50 mg PO BID 01/22/16 Sitagliptin Phosphate [Januvia] 50 mg PO DAILY 01/22/16 glipiZIDE [Glucotrol] 5 mg PO BID 01/22/16 pioglitazone 45 mg tablet 45 mg PO 1800 05/11/18 simvastatin 40 mg tablet 40 mg PO QHS #90 tab 10/26/18 insulin glargine (U-100) 100 unit/mL subcutaneous solution 12 unit SC DAILY PRN 11/09/18 hydrochlorothiazide 12.5 mg tablet 12.5 mg PO DAILY 12/29/18 potassium chloride ER 20 mEq tablet,extended release 20 meq PO DAILY #30 tab 12/30/18 warfarin 1 mg tablet 1 mg PO QHS #30 tab 02/09/19 Amiodarone HCl 200 mg PO DAILY 03/31/19 Ibuprofen [Motrin] 400 mg PO Q4H PRN PRN tablet 04/02/19 Primary Care Physician: Mohit Palacio DO [Primary Care Provider] - Test Results: Test results from this visit will be discussed in further detail at your follow- up appointment, if applicable. Please Follow Up With: Doe Hart MD When: Friday at 2:00 PM
[2019-04-02] MEDS: 0.9% NaCl Peripheral Flush Adult/Peds IV (06:17)
[2019-04-02 08:12] VITALS: BP 120/77; PULSE 70; PULSE 77; RESP 18; TEMP 36.8; O2SAT 100
[2019-04-02] MEDS: Amiodarone 200 MG Tablet PO (08:31)
[2019-04-02 08:32] VITALS: PULSE 70
[2019-04-02] MEDS: hydroCHLOROthiazide 12.5mg 12.5 MG PO (08:32)
[2019-04-02] MEDS: LINAGLIPTIN 5 MG TABLET PO (08:32)
[2019-04-02] MEDS: Metoprolol Tartrate 50 MG Tablet PO (08:32)
[2019-04-02] MEDS: Lisinopril 5 MG Tablet PO (08:32)
[2019-04-02] MEDS: glipiZIDE 5 MG Tablet PO (08:32)
[2019-04-02 13:57] LABS: Pathologist Comment/Body Fluid Reviewed
[2019-04-05 08:16] LABS: pH, Body Fluid 11254 7.7 (Not Estab.)
== END 2019-04-02 09:55 | disposition home or self-care (01) ==
LOC: SDC 14:16 → AC 14:20 → SDC 20:29 → MS3 23:18
PROVIDERS: Family Provider Family Medicine; PCP Family Medicine; Referring Provider Surgery; Visit Provider Surgery
PROC: 0WHG43Z Insertion of Infusion Device into Peritoneal Cavity, Percutaneous Endoscopic Approach (ICD-10-PCS; CPT 49324; principal; 2019-04-01 15:45)
DX: J90 Pleural effusion, not elsewhere classified (principal); E78.00 Pure hypercholesterolemia, unspecified; E11.9 Type 2 diabetes mellitus without complications; I48.91 Unspecified atrial fibrillation; I45.10 Unspecified right bundle-branch block; I69.351 Hemiplegia and hemiparesis following cerebral infarction affecting right dominant side; I11.0 Hypertensive heart disease with heart failure; I50.30 Unspecified diastolic (congestive) heart failure; I47.2 Ventricular tachycardia; Q21.1 Atrial septal defect; Z79.4 Long term (current) use of insulin; Z79.01 Long term (current) use of anticoagulants; Z79.899 Other long term (current) drug therapy
CPT/HCPCS: 32550; 36415; 36416; 71045; 71250; 82945; 82962; 83615; 83986; 84156; 84157; 85610; 88108; 88305; 88313; 89050; J7120; A4216; C1729; J2405

== ENCOUNTER 2019-04-21 08:42 | Outpatient (RCR) | payer OTHER, SELFPAY ==
[2019-03-23 14:49] VITALS: BMI 24.9
[2019-04-01 20:42] VITALS: BMI 24.5
[2019-04-14 10:25] LABS: Prothrombin Time (Protime)PT. 35.9 SECONDS (11.7-14.9)
[2019-04-14 10:35] LABS: International Normalized Ratio 3.6
[2019-04-21 10:33] LABS: Prothrombin Time (Protime)PT. 31.4 SECONDS (11.7-14.9)
== END 2019-04-21 10:00 | disposition home or self-care (01) ==
LOC: LAB 08:42
PROVIDERS: Family Provider Family Medicine; PCP Family Medicine; Referring Provider Internal Medicine Cardiovascular Disease; Visit Provider Internal Medicine Cardiovascular Disease
DX: I48.1 Persistent atrial fibrillation (principal); Z79.01 Long term (current) use of anticoagulants
CPT/HCPCS: 36415; 85610